=== PATIENT | female | born 1950 | race Caucasian/White ===

== ENCOUNTER 2018-06-02 10:58 | Inpatient (IN) | payer OTHER, MEDICAID ==
[~2018-06-02] VITALS: Ht 162.6 cm; Wt 82.1 kg
[2018-06-02 10:59] VITALS: BP 102/49
[2018-06-02] MEDS ORDERED: MICARDIS 80 MG80 MG PO (11:10)
[2018-06-02] MEDS ORDERED: METFORMIN HCL500 MG PO (11:10)
[2018-06-02] MEDS ORDERED: POLYETHYLENE GLY1 GM PO (11:10)
[2018-06-02] MEDS ORDERED: LANTUS100 UNIT/M SUBQ (11:10)
[2018-06-02] MEDS ORDERED: LIPITOR10 MG PO (11:11)
[2018-06-02] MEDS ORDERED: OMEPRAZOLE20 MG PO (11:11)
[2018-06-02 11:27] LABS: HEMATOCRIT 35.2 % (37.0-47.0); HEMOGLOBIN 11.5 gm/dL (12.0-15.0); MCH 26.7 pg (26.0-34.0); MCHC 32.6 g/dL (28.0-37.0); MPV 8.6 fl. (7.2-11.1); NUCLEATED RBCS 0 /100WBC; PLATELET COUNT* 176 thou/uL (150-400); WBC 13.4 thou/uL (4.0-11.0)
[2018-06-02 11:36] LABS: ANION GAP 7 mmol/L (7-16); BUN 21 mg/dL (7-18); CALCIUM 7.9 mg/dL (8.5-10.1); CHLORIDE 101 mmol/L (98-107); CO2 27 mmol/L (21-32); CREATININE 1.5 mg/dL (0.6-1.3); GLUCOSE 116 mg/dL (70-99); POTASSIUM 3.6 mmol/L (3.5-5.1); SODIUM 135 mmol/L (136-145)
[2018-06-02 11:47] LABS: ALBUMIN 3.1 g/dL (3.4-5.0); ALKALINE PHOSPHATASE 92 U/L (46-116); LIPASE 111 U/L (73-393); MAGNESIUM 1.6 mg/dL (1.8-2.4); NT-PRO BRAIN NAT PEPTIDE 518 pg/mL (<300); SGOT 27 U/L (15-37); SGPT 21 U/L (30-65); TOTAL BILIRUBIN 0.6 mg/dL (<0.1-1.0); TOTAL PROTEIN 6.3 g/dL (6.4-8.2); TROPONIN-I LEVEL <0.06 ng/mL (<0.06)
[2018-06-02 12:27] LABS: ABSOLUTE LYMPHOCYTES 0.7 thou/uL (0.8-5.3); ABSOLUTE MONOCYTES 0.7 thou/uL (0.0-1.2); ABSOLUTE NEUTROPHILS 12.1 thou/uL (1.6-8.1)
[2018-06-02 12:28] LABS: ANISOCYTOSIS 1+; PLATELET ESTIMATE ADEQUATE; POIKILOCYTOSIS 1+
[2018-06-02 12:56] LABS: URINE BILIRUBIN NEGATIVE (Negative); URINE BLOOD TRACE (Negative); URINE CLARITY CLEAR; URINE COLOR YELLOW; URINE GLUCOSE-RANDOM NEGATIVE (Negative); URINE KETONES NEGATIVE (Negative); URINE PROTEIN 1+ (Negative); URINE SPECIFIC GRAVITY 1.025 (1.005-1.030); URINE UROBILINOGEN 0.2 E.U./dl (0.2-1.0)
[2018-06-02 12:57] LABS: URINE LEUKOCYTES-REFLEX 2+ (Negative); URINE NITRITE-REFLEX POSITIVE (Negative)
[2018-06-02 13:01] LABS: INFLUENZA A ANTIGEN None Detected (None Detect); INFLUENZA B ANTIGEN None Detected (None Detect)
[2018-06-02 13:02] LABS: BACTERIA-REFLEX >30 Many /HPF (None Seen); CASTS None Seen /LPF (None Seen); CRYSTALS None Seen /LPF (None Seen); MUCUS 0-3 Light strn/LPF (None Seen); SQUAMOUS 0-3 Few /LPF (0-3); URINE RBC 0-2 Rare /HPF (0-2); URINE WBC-REFLEX 6-15 Few /HPF (0-5)
[2018-06-02 14:22] VITALS: BP 104/48
[2018-06-02 15:37] VITALS: BP 107/57
--- NOTE | 2018-06-02 15:41 | EKG ---
[place] [address] ELECTROCARDIOGRAM REPORT Name: VALERY BUSCH Room: [address] ADM IN [facility].#: [id number] Admission: 06/02/18 Attend Phys: Clau Nevarez Discharge: Date of : 46 Report #: [id number] THIS REPORT FOR: //name// [facility] ED Test Date: 2018-06-02 Test Time: 11:34:36 Pat Name: VALERY BUSCH Department: Room: [facility] Gender: F Teletypesetter: DUSTIN : 1950 Requested By: Massiel Carbone Order Number: [id number] MD: Michael Aguilar Measurements Intervals [place] Rate: 83 P: 28 IA: 177 QRS: -19 QRSD: 87 T: 22 QT: 385 QTc: 453 Interpretive Statements Sinus rhythm Borderline left axis deviation Low voltage, precordial leads No previous ECG available for comparison Electronically Signed On 06-02-2018 15:41:39 [employer] by Michael Aguilar [email or web address] <ELECTRONICALLY SIGNED> By: Michael Aguilar MD, [facility] 06/02/18 1541 1134 [id number] Michael Aguilar MD, [facility] /EPI
[2018-06-02 16:03] LABS: CALCIUM 6.5 mg/dL (8.5-10.1); POTASSIUM 4.4 mmol/L (3.5-5.1)
[2018-06-02 19:30] VITALS: BP 124/58
[2018-06-02 21:03] LABS: CALCIUM 7.4 mg/dL (8.5-10.1); MAGNESIUM 1.5 mg/dL (1.8-2.4)
[2018-06-02] MEDS ORDERED: ASPIRIN325 PO (23:43)
[2018-06-03] VITALS (7 sets, daily range): BP systolic 95–128; BP diastolic 50–65
--- NOTE | 2018-06-03 12:46 | CON ---
[address] [address] CONSULTATION Name: VALERY BUSCH Room: [address] IN M.R.#: [id number] Admission: 06/02/18 Attend Phys: Clau Nevarez Discharge: Date of : 46 Report #: [id number] THIS REPORT FOR: //name// CC: Mima Le DATE OF SERVICE: 06/02/2018 INFECTIOUS DISEASE CONSULTATION ATTENDING PHYSICIAN: Yoan Le DO. REASON FOR EVALUATION: Early sepsis, complicated urinary tract infection. HISTORY OF PRESENT ILLNESS: Chart reviewed, the patient examined. This is a 67-year-old with known diabetes mellitus, who was admitted with progressive weakness over the last several days. She had associated dizziness, anorexia with poor p.o. intake, did have some chills and a question of fevers. Of note, she had a period of nausea with diarrhea previous days prior to admission, although it seemed to have resolved. Outpatient evaluation suggested complicated urinary tract infection. She is not encephalopathic. X-ray was fairly unremarkable. Lactic acid 1.8. CT abdomen and pelvis showed no acute process. Influenza A and B antigens were not detected. Empirically started on therapy with ceftriaxone one daily. ALLERGIES: None known. MEDICATIONS: Include losartan, ceftriaxone, atorvastatin, metformin, p.r.n. analgesics and antiemetics. PAST MEDICAL HISTORY: Includes diabetes mellitus and hypertension. SOCIAL HISTORY: No ethanol. FAMILY HISTORY: Noncontributory. REVIEW OF SYSTEMS: A 10-point review of systems is otherwise unremarkable, with the exception noted the history of present illness. PHYSICAL EXAMINATION: GENERAL: She is alert. She appears ill, not overtly toxic. She is in [id number] distress. VITAL SIGNS: Temperature 100.3, pulse 86, respirations 20 and blood pressure 100/57. SKIN: Warm, dry. No rashes. HEENT: Otherwise, unremarkable. [place] [address] CONSULTATION Name: VALERY BUSCH Karlo Room: [address]#: [id number] Admission: 06/02/18 Attend Phys: Clau Nevarez Discharge: Date of : 46 Report #: [id number] NECK: Supple. LUNGS: Few scattered crackles at the bases. HEART: Regular. I do not appreciate a murmur. ABDOMEN: Soft, nontender and nondistended. There are no peritoneal signs. LOWER EXTREMITIES: No edema. GENITOURINARY: Deferred. RECTAL: Deferred. LABORATORY DATA: Initial studies, sodium 135, potassium 3.6, chloride of 101, bicarbonate is 27, anion gap of 7, BUN and creatinine 21 and 1.5 and glucose of 116. LFTs unremarkable. Albumin is 3.1. Total protein of 6.3. Chest x-ray, minor bibasilar pulmonary atelectasis. Lactic acid 1.8. CBC: White count of 13.4, H and H 11.5 and 35.2 and platelets of 176,000. There is lymphocytopenia of 700. Influenza antigen A and B negative. Urinalysis, 6-15 white cells and greater than 30 bacteria. ASSESSMENT AND PLAN: Complicated urinary tract infection complicated by early sepsis and dehydration. Continue the ceftriaxone. I will give a single dose of gentamicin, pending the results. At this point, she is not overtly hemodynamically labile. At this point, I do not see other focus of infection. We will see how she does clinically over the course of the next 24-48 hours. <ELECTRONICALLY SIGNED> By: Zane Muñoz MD 06/03/18 1246 [id number] Muñoz MD /nt
[2018-06-04 04:00] VITALS: BP 132/64
[2018-06-04 08:11] VITALS: BP 142/69
[2018-06-04 12:00] VITALS: BP 140/75
[2018-06-04 16:00] VITALS: BP 135/75
[2018-06-04 20:00] VITALS: BP 150/78
[2018-06-05] VITALS: BP 136/55
[2018-06-05 07:30] VITALS: BP 138/73
[2018-06-05 15:40] VITALS: BP 139/74
[2018-06-05 20:00] VITALS: BP 146/72
[2018-06-06 04:15] LABS: ABSOLUTE EOSINOPHILS 0.1 thou/uL (0.0-0.7); ABSOLUTE LYMPHOCYTES 1.4 thou/uL (0.8-5.3); ABSOLUTE MONOCYTES 0.5 thou/uL (0.0-1.2); ABSOLUTE NEUTROPHILS 3.8 thou/uL (1.6-8.1); BASOPHILS 0.7 %; EOSINOPHILS 1.8 %; HEMATOCRIT 32.1 % (37.0-47.0); HEMOGLOBIN 10.7 gm/dL (12.0-15.0); LYMPHOCYTES 23.5 %; MCH 27.3 pg (26.0-34.0); MCHC 33.4 g/dL (28.0-37.0); MCV 81.6 fL (80.0-100.0); MONOCYTES 8.1 %; MPV 9.9 fl. (7.2-11.1); NUCLEATED RBCS 0 /100WBC; PLATELET COUNT* 141 thou/uL (150-400); POLYS 65.9 %; RBC 3.94 mil/uL (4.20-5.00); RDW-CV 15.8 % (10.5-14.5); WBC 5.8 thou/uL (4.0-11.0)
[2018-06-06 08:00] VITALS: BP 147/81
[2018-06-06] MEDS ORDERED: MUCINEX600 MG PO (09:04)
[2018-06-06] MEDS ORDERED: CIPRO500 MG PO (09:04)
[2018-06-06] MEDS ORDERED: FLONASE 0.05%50 MCG NASAL (09:04)
[2018-06-06 16:14] VITALS: BP 111/60
[2018-06-06 20:00] VITALS: BP 152/69
[2018-06-07] VITALS: BP 122/53
[2018-06-07 04:00] VITALS: BP 113/62
[2018-06-07 08:20] VITALS: BP 158/63
[2018-06-07 11:32] VITALS: BP 158/63
[2018-06-07] MEDS ORDERED: CEFDINIR300 MG PO (11:39)
== END 2018-06-07 14:34 | disposition home or self-care (01) | DRG 871 ==
LOC: M.ERS 10:58 → M.2W 13:36 → M.TBA-ER 13:36 → M.2W 14:42 → M.ORTHSURG 06-05 13:44
PROVIDERS: Internal Medicine Infectious Disease; Nurse Practitioner Family; ADMIT Internal Medicine
DX: A41.51 Sepsis due to Escherichia coli [E. coli] (principal); N17.2 Acute kidney failure with medullary necrosis; N30.00 Acute cystitis without hematuria; N12 Tubulo-interstitial nephritis, not specified as acute or chronic; N18.3 Chronic kidney disease, stage 3 (moderate); I12.9 Hypertensive chronic kidney disease with stage 1 through stage 4 chronic kidney disease, or unspecified chronic kidney disease; E11.22 Type 2 diabetes mellitus with diabetic chronic kidney disease; E86.0 Dehydration; F17.210 Nicotine dependence, cigarettes, uncomplicated; B96.20 Unspecified Escherichia coli [E. coli] as the cause of diseases classified elsewhere; J32.4 Chronic pansinusitis; Z79.4 Long term (current) use of insulin; Z79.899 Other long term (current) drug therapy